=== PATIENT | female | born 1950 | race Caucasian/White ===

== ENCOUNTER → 2022-05-04 07:03 | Outpatient (CLI) | payer MEDICARE, SELFPAY ==
--- NOTE | ~2022-05-04 | MR_ITS ---
EXAMINATION: MR lumbar spine wo con DATE: 05/04/2022 07:31 INDICATION: Right-sided low back pain. TECHNIQUE: Magnetic resonance imaging (MRI) of the lumbar spine was performed without intravenous con trast. Sequences included sagittal T2-weighted FSE, sagittal T2-weighted FS FSE, sagittal T1-weighted FSE, and axial T2-weighted FSE. COMPARISON: None FINDINGS: There is 19 degrees levoscoliosis of thoracic spine. There is 3 mm retrolisthesis of L1 on L2. There is moderately decreased disc height at T11-T12 and T12-L1 and mildly decreased disc height at L1-L2 and L2-L3. The distal spinal cord signal intensity is normal. The conus medullaris is at L1- L2. 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 The following disc levels are specifically discussed: T12-L1: The disc is bulging with superimposed right subarticular zone extrusion. There is moderate bi lateral facet joint osteoarthritis. There is mild bilateral neural foraminal stenosis. There is mild central canal stenosis. L1-L2: The disc is bulging and has an annular fissure. There is mild bilateral facet joint osteoarthr itis. There is mild bilateral neural foraminal stenosis. There is mild central canal stenosis. L2-L3: The disc is bulging and has an annular fissure. There is moderate bilateral facet joint osteoa rthritis. There is mild right and moderate left neural foraminal stenosis. There is mild central marycruz l stenosis. L3-L4: The disc is mildly bulging. There is moderate bilateral facet joint osteoarthritis. There is m ild bilateral neural foraminal stenosis. There is mild central canal stenosis. L4-L5: The disc is mildly bulging and has an annular fissure. There is severe bilateral facet joint o steoarthritis. There is mild bilateral neural foraminal stenosis. There is no central canal stenosis. L5-S1: The disc is bulging and has an annular fissure. There is severe bilateral facet joint osteoart hritis. There is mild bilateral neural foraminal stenosis. There is mild central canal stenosis. IMPRESSION: 1. Moderate thoracolumbar spondylosis. 2. Thoracic levoscoliosis. Reviewed, dictated and finalized at location A.
== END ==
PROVIDERS: PCP Internal Medicine; Visit Provider Internal Medicine
DX: M47.894 Other spondylosis, thoracic region (principal)
CPT/HCPCS: 72148

== ENCOUNTER → 2023-07-13 09:07 | Outpatient (CLI) | payer MEDICARE, SELFPAY ==
--- NOTE | ~2023-07-13 | CT_ITS ---
EXAMINATION: CT brain wo con DATE: 07/13/2023 09:22 INDICATION: Cognitive impairment. TECHNIQUE: Computed tomography (CT) of the head was performed without intravenous contrast. The mA wa s adjusted according to patient size. Iterative reconstruction technique was employed. The dose-lengt h product was 599.57 mGy-cm. COMPARISON: None FINDINGS: There is no intracranial hemorrhage, acute infarction, or abnormal intracranial mass lesion . There are scattered areas of low attenuation in the cerebral white matter, which is within normal l imits for the patient's age. The ventricles are normal in size. The paranasal sinuses are clear. Ther e are likely changes of ocular lens replacement surgeries. The mastoid air cells are normal. IMPRESSION: 1. Normal aging brain. Reviewed, dictated and finalized at location A. IMPRESSION: 1. Normal aging brain.
== END ==
PROVIDERS: PCP Internal Medicine; Visit Provider Internal Medicine
DX: R41.89 Other symptoms and signs involving cognitive functions and awareness (principal)
CPT/HCPCS: 70450

== ENCOUNTER 2023-10-19 11:10 | Outpatient (CLI) | payer MEDICARE, SELFPAY ==
--- NOTE | ~2023-10-19 | MMUS_ITS ---
EXAMINATION: MM diagnostic byron BI w laura, US breast BI complete HISTORY: Left breast lump TECHNIQUE: Full field and spot ML, MLO and CC 3-D tomosynthesis images of both breasts. were performe d and synthetic 2-D images were generated. CAD analysis was submitted and interpreted. High resolutio n bilateral complete breast ultrasound examination could L4 quadrants and subareolar area of each melany ast was performed. COMPARISON: 09/29/2021 bilateral screening mammogram from [facility] BREAST PARENCHYMAL COMPOSITION: There are scattered areas of fibroglandular density. FINDINGS: MAMMOGRAPHIC FINDINGS: There is mildly nodular fibroglandular stroma of the breasts and mild subareolar fibroglandular asymm etry, without significant apparent change since 09/29/2021. No suspicious mass, architectural distortion, malignant calcification, skin thickening or retraction of either breast or significant new or developing density is noted. ULTRASOUND: Right breast: 10:00 2 cm from nipple: There is mild ductal prominence. Left breast: 12:00 1 cm from nipple: 1.6 x 2.2 mm parallel circumscribed hypoechoic lesion without suspicious shad owing 12:00 3 cm from nipple: Parallel circumscribed hypoechoic 3.7 x 2 x 4 mm lesion without suspicious sh adowing 3:00 subareolar area: Parallel circumscribed hypoechoic 9 x 5.4 x 6.6 mm irregular hypoechoic lesion within completely circumscribed margins. No internal vascularity is noted. However, the irregular mar gins and lack of complete definition of the margins are of concern; ultrasound-guided biopsy is recom mended. 10:00 3 cm from nipple: Parallel circumscribed hypoechoic 2.1 x 3.6 x 5.3 mm benign-appearing hypoech oic lesion, possibly an intramammary lymph node IMPRESSION: 1. Left 3:00 subareolar irregular hypoechoic up to 5.4 x 6.6 x 9 mm lesion within completely circumsc ribed margins 2. Ultrasound-guided biopsy of left 3:00 subareolar lesion is recommended BI-RADS category 4, suspicious findings. Dr. Faith telephoned the report and ultrasound-guided biopsy recommendation of the left breast 3:00 darryn stratton on 10/20/[address] Aguilera. Reviewed, dictated and finalized at location A. PICKER IMPRESSION: 1. Left 3:00 subareolar irregular hypoechoic up to 5.4 x 6.6 x 9 mm lesion with in completely circumscribed margins 2. Ultrasound-guided biopsy of left 3:00 subareolar lesion is recommended BI-RADS category 4, suspicious findings. Dr. Faith telephoned the report and ultrasound-guided biopsy recommendation of t he left breast 3:00 lesion on 10/20/[address] Aguilera.
== END 2023-10-19 11:11 | disposition home or self-care (01) ==
PROVIDERS: PCP Internal Medicine; Visit Provider Internal Medicine
DX: N63.20 Unspecified lump in the left breast, unspecified quadrant (principal); R92.8 Other abnormal and inconclusive findings on diagnostic imaging of breast
CPT/HCPCS: 76641; 77062; 77066; G0279

== ENCOUNTER 2023-11-03 10:02 | Outpatient (CLI) | payer MEDICARE, SELFPAY ==
--- NOTE | ~2023-11-03 | MMUS_ITS ---
EXAMINATION: US breast biopsy LT w image, MM post biopsy invasive LT DATE: 11/03/2023 12:17 (accession [id number]), 11/03/2023 11:57 (accession [id number]) INDICATION: Indeterminate mass at the 3:00 location in the subareolar aspect of the left breast. Ultr asound-guided core biopsy is requested to evaluate for malignancy. TECHNIQUE AND FINDINGS: The risks and potential benefits of the procedure were discussed with the patient including bleeding and infection. A time out was performed. The skin of the left breast was prepared and draped in usual sterile fashion. 1% lidocaine was used for superficial anesthesia. 1% lidocaine with epinephrine was used for deep anesthesia. A vacuum-assisted biopsy needle was advanced through to the outer edge of the region of interest from a lateral approach utilizing sonographic guidance. A total of four tissue core samples were obtained through the lesion. A tissue marker clip was then placed at the biopsy site. Hemostasis was achieved . A sterile bandage was applied. The patient tolerated procedure well and there was no evidence of immediate complication. The patient was given verbal instructions to return to the Emergency Department in the event of severe breast pa in or rapid breast enlargement. A two view left breast mammogram was obtained to document tissue gonzalo er clip placement. IMPRESSION: 1. Successful ultrasound-guided vacuum-assisted biopsy of left breast mass with tissue marker placeme nt. Reviewed, dictated and finalized at location A. RVISOR SAMPLE IMPRESSION: 1. Successful ultrasound-guided vacuum-assisted biopsy of left breast mass with tissue marker placement.
== END 2023-11-03 10:03 | disposition home or self-care (01) ==
PROVIDERS: PCP Internal Medicine; Visit Provider Internal Medicine
DX: N63.25 Unspecified lump in the left breast, overlapping quadrants (principal)
CPT/HCPCS: 19083; 88305

== ENCOUNTER 2024-10-09 12:00 | Outpatient (CLI) | payer MEDICARE, SELFPAY ==
--- NOTE | ~2024-10-09 | XR_ITS ---
XR shoulder LT min 2V Ordering provider: SUHAS Barrera History: . R52 - Pain, unspecified . Comparison: None. FINDINGS: BONES: No acute fracture or dislocation. JOINT SPACES: The acromioclavicular joint shows osteoarthritic changes.. The glenohumeral joint is no rmal. SOFT TISSUES: Normal. IMPRESSION: No acute osseous abnormality left shoulder. Reviewed, dictated and finalized at location A. ER SETTER
== END 2024-10-09 12:01 | disposition home or self-care (01) ==
LOC: MICIMG 12:01
PROVIDERS: PCP Anesthesiology Pain Medicine; Visit Provider Physician Assistant Surgical
DX: M25.512 Pain in left shoulder (principal)
CPT/HCPCS: 73030